=== PATIENT | female | born 1945 | race Caucasian/White ===

== ENCOUNTER → 2016-12-18 | Outpatient (CLI) | payer MEDICARE, OTHER ==
[~2016-12-18] MED LIST: AMLODIPINE BESYL5 MG PO; ASPIRIN81 M2 PO; BENAZEPRIL HCL10 M1 PO; BENAZEPRIL HCL10 MG PO; CLOPIDOGREL75 MG PO; LO-DOSE ASPIRIN81 M1 PO; LOTREL 5/10 MG1 CAP; OMEPRAZOLE40 M1 PO; OMEPRAZOLE40 MG PO; PROAIR HFA8.5 GM INH; PROTONIX; SPIRIVA18 MCG INH; STRIVERDI RESPIM4 GM INH
--- NOTE | ~2016-12-18 | BD1 ---
[facility] A Service of [facility] RADIOLOGY TEXT RESULTS PATIENT: ANAIS KELSEY LOCATION: [facility] : 45 UNIT #: [id number] AGE: [address]: ALAN INMAN MD SEX: F ORDER DR: [id number] [facility] [address] [place], [place] [address] [id number] O MR#: [id number] Acc #: [id number] NAME: ANAIS KELSEY : 1945 SEX: F STUDY DATE/TIME: 12/18/2016 16:33 UNIT: [facility] ROOM: STUDY DESCRIPTION: BD Dexa Bone Dens 1+ Site Attending Physician: Alan Inman M.D. Referring Physician: Alan Inman M.D. Ordering Physician: Alan Inman M.D. Primary Care Physician: Aaln Inman M.D. MEDICAL IMAGING REPORT This report is preliminary unless electronic signature is present EXAM DXA scan 12/18/2016 HISTORY Status post menopause with no hormone replacement therapy. Osteopenia. Hysterectomy at age 35. Hypertension with blood pressure medication for several years. Smoking history for 60 years. Stress fracture left hip in last 10 years. FINDINGS Bone mineral density in the lumbar spine from L1-L4 was 0.924 g/cm2 which is 1.1 standard deviations below the mean when compared to young adult reference population which is characteristic of osteopenia. This is 1 standard deviation above the mean when compared to the age-matched population. Compared with 02/13/2011 there has been a decrease in bone mineral density in the lumbar spine at 13.7%. Bone mineral density in the left femoral neck was 0.596 g/cm2 which is 2.3 standard deviations below the mean when compared to the young adult reference population which is characteristic of osteopenia. This is 0.4 standard deviations below the mean when compared to the age-matched population. Compared with 02/13/2011 there has been a decrease in bone mineral density in the left hip of 19.5%. IMPRESSION Bone mineral density in the lumbar spine and left hip characteristic of osteopenia. Compared with 02/13/2011 there has been a decrease in bone mineral density in the lumbar spine and the left hip. Dictated by... Jose F Baca M.D. THIS IS AN ELECTRONICALLY VERIFIED REPORT Jose F Baca M.D. at 12/19/2016 2:18 PM [facility] A Service of [facility] RADIOLOGY TEXT RESULTS PATIENT: ANAIS KELSEY LOCATION: [facility] : 45 UNIT #: [id number] AGE: [address]: ALAN INMAN MD SEX: F ORDER DR: Karo TD: 12/18/2016 17:52 JOB #: [id number] MEDICAL IMAGING REPORT Page 1 of 1 COPY
== END | disposition home or self-care (01) ==
LOC: CWCC 16:20
DX: Z78.0 Asymptomatic menopausal state (principal); M85.89 Other specified disorders of bone density and structure, multiple sites
CPT/HCPCS: 77080

== ENCOUNTER → 2017-01-27 | Outpatient (CLI) | payer MEDICARE, OTHER ==
--- NOTE | ~2017-01-27 | US135 ---
[facility] A Service of [facility] RADIOLOGY TEXT RESULTS PATIENT: ANAIS KELSEY LOCATION: [facility] : 45 UNIT #: [id number] AGE: [address]: Birdie Garcia SEX: F ORDER DR: [id number] [facility] [address] [place], [place] [address] [id number] O MR#: [id number] Acc #: [id number] NAME: ANAIS KELSEY : 1945 SEX: F STUDY DATE/TIME: 01/27/2017 8:39 UNIT: [facility] ROOM: STUDY DESCRIPTION: US U/L Ext Art Study Comp Davis Attending Physician: Birdie Garcia A.P.R.N. Referring Physician: Birdie Garcia A.P.R.N. Ordering Physician: Birdie Garcia A.P.R.N. Primary Care Physician: Yadira Whaley M.D. MEDICAL IMAGING REPORT This report is preliminary unless electronic signature is present EXAM Bilateral lower extremity arterial studies HISTORY Claudication lower extremities. Peripheral vascular disease. FINDINGS Pulse volume recordings are biphasic from the thigh to the ankle levels bilaterally. Doppler velocity waveforms are biphasic on the right side and on the left dorsalis pedis and monophasic at the left posterior tibial. Right basal pressure is 128 and left basal pressure is 97 mmHg. On the right side, high-thigh pressure is 120, low-thigh 100, calf pressure 96, posterior tibial 93, dorsalis pedis 92, great toe 47, for a right lyeki-wk-qupgyqso index of 0.73. On the left side, high-thigh pressure is 130, low-thigh 132, calf pressure 112, posterior tibial 107, dorsalis pedis 110, great toe 67, for a left fsqeg-uy-lwasemez index of 0.86. IMPRESSION 1. Moderate peripheral vascular disease is seen in the right lower extremity with mvnpp-lh-kwmwgxft index of 0.73. Segmental pressures indicate aortoiliac and peripheral arterial occlusive disease on the right side. 2. Mild peripheral vascular disease is seen in the left lower extremity with vkbxs-zm-zabfxyha index of 0.86. Dictated by... [facility] A Service of [facility] RADIOLOGY TEXT RESULTS PATIENT: ANAIS KELSEY LOCATION: [facility] : 45 UNIT #: [id number] AGE: [address]: Birdie Garcia SEX: F ORDER DR: Omari Gtz M.D. THIS IS AN ELECTRONICALLY VERIFIED REPORT Omari Gtz M.D. at 01/30/2017 10:59 AM James TD: 01/27/2017 15:06 JOB #: [id number] MEDICAL IMAGING REPORT Page 1 of 1 COPY
== END | disposition home or self-care (01) ==
LOC: CNIV 08:32
DX: I65.23 Occlusion and stenosis of bilateral carotid arteries (principal); I73.9 Peripheral vascular disease, unspecified
CPT/HCPCS: 93923

== ENCOUNTER → 2017-02-28 | Outpatient (CLI) | payer MEDICARE, OTHER ==
--- NOTE | ~2017-02-28 | MY29 ---
[facility] A Service of [facility] RADIOLOGY TEXT RESULTS PATIENT: ANAIS KELSEY LOCATION: [facility] : 45 UNIT #: [id number] AGE: [address]: ALAN INMAN MD SEX: F ORDER DR: [id number] [facility] [address] [place], [place] [address] [id number] O MR#: [id number] Acc #: [id number] NAME: ANAIS KELSEY : 1945 SEX: F STUDY DATE/TIME: 02/28/2017 7:41 UNIT: [facility] ROOM: STUDY DESCRIPTION: MY GUSTAVO SCREENING W/ CAD BILAT Attending Physician: Alan Inman M.D. Referring Physician: Alan Inman M.D. Ordering Physician: Alan Inman M.D. Primary Care Physician: Alan Inman M.D. MEDICAL IMAGING REPORT This report is preliminary unless electronic signature is present EXAM Digital screening mammogram, 02/28/2017 HISTORY 71-year-old woman no risk elevation. Annual screening. COMPARISON Mammograms date to 02/07/2009 with most recent 02/26/2016. FINDINGS Digital imaging of each breast was completed utilizing a two-view examination of each breast in craniocaudal and mediolateral-oblique projections. Review and interpretation of digital mammograms include a second review in conjunction with FDA-approved CAD device. There is a normal parenchymal presentation bilaterally consistent with the patient's age. There are no breast masses imaged and no parenchymal asymmetry is visualized. There are no suspicious microcalcifications and I see no focal architectural disturbance. IMPRESSION Negative screening digital mammogram. One-year followup recommended. Patients over the age of 40 are entered into a reminder system with target due date for the next mammogram. A result letter will also be sent to the patient. BIRADS: 1 Negative ADDENDUM Breast parenchyma is fatty replaced. Dictated by... Uri Jovel M.D. [facility] A Service of [facility] RADIOLOGY TEXT RESULTS PATIENT: ANAIS KELSEY LOCATION: [facility] : 45 UNIT #: [id number] AGE: [address]: ALAN INMAN MD SEX: F ORDER DR: THIS IS AN ELECTRONICALLY VERIFIED REPORT Uri Jovel M.D. at 02/28/2017 12:22 PM Leopoldo TD: 02/28/2017 10:37 JOB #: [id number] MEDICAL IMAGING REPORT Page 1 of 1 COPY
== END | disposition home or self-care (01) ==
LOC: CWCC 07:23
DX: Z12.31 Encounter for screening mammogram for malignant neoplasm of breast (principal)
CPT/HCPCS: G0202